=== PATIENT | female | born 1995 | race Caucasian/White ===

== ENCOUNTER 2020-08-02 09:11 | Outpatient (REF) | payer OTHER, SELFPAY ==
--- NOTE | 2020-08-02 07:45 | PAPFT_PTH ---
PATIENT: Rabia Kirkland LOC: [facility] U#:[id number] AGE/SX: 24/F ROOM: RE08/02/[address]: Jesenia Olea : 1995 BED: DIS: 08/02/2020 SPEC #: [id number] RECD: 08/02/20 17:56 STATUS: PAULO REJc #: [id number] ROSIBEL: 08/02/20 07:[address]: Jesenia Olea DEPT: [facility] Cytology RECD BY: Petty Simmons Tissues: 1 - CX/ENDOCX FOR PAP SMEARS Procedures: PAP THIN PREP/[facility] Screening Comments: [id number] (CHLAMYDIA/GC)
[2020-08-05 15:20] LABS: Chlamydia Result Negative (Negative); GC Result Negative (Negative)
== END 2020-08-02 09:12 | disposition home or self-care (01) ==
LOC: NCHCN 09:11
PROVIDERS: PCP Family Medicine; Visit Provider Family Medicine
DX: Z00.00 Encounter for general adult medical examination without abnormal findings (principal); Z12.4 Encounter for screening for malignant neoplasm of cervix; Z11.3 Encounter for screening for infections with a predominantly sexual mode of transmission
CPT/HCPCS: 87491; 87591; 88142

== ENCOUNTER 2023-08-18 11:45 | Outpatient (REF) | payer OTHER, SELFPAY ==
--- NOTE | 2023-08-18 08:45 | PAPFT_PTH ---
PATIENT: Rabia Kirkland LOC: [facility] U#:[id number] AGE/SX: 27/F ROOM: RE08/18/[address]: Jesenia Olea : 1995 BED: DIS: 08/18/2023 SPEC #: [id number] RECD: 08/18/23 17:58 STATUS: PAULO STEELE #: [id number] ROSIBEL: 08/18/23 08:[address]: Jesenia Olea DEPT: [facility] Cytology RECD BY: Petty Simmons Tissues: 1 - CX/ENDOCX FOR PAP SMEARS Procedures: PAP THIN PREP/[facility] Screening Comments: [id number]
== END 2023-08-18 11:46 | disposition home or self-care (01) ==
LOC: NCHCN 11:45
PROVIDERS: PCP Family Medicine; Visit Provider Family Medicine
DX: Z12.4 Encounter for screening for malignant neoplasm of cervix (principal)
CPT/HCPCS: 88142